=== PATIENT | male | born 1970 | race Two or more races ===

== ENCOUNTER 2018-02-26 16:52 | Emergency (ER) | payer MEDICAID ==
[~2018-02-26] VITALS: Ht 177.8 cm; Wt 68.0 kg
[~2018-02-26 16:52] MED LIST: CELEXA; SEROQUEL; TRAZODONE; WELBUTRIN
[2018-02-26 18:02] LABS: HEMATOCRIT. 43.3 % (42.0-52.0); HEMOGLOBIN. 15.2 g/dL (14.0-18.0); MEAN CORPUSCULAR HEMOGLOBIN 32.6 pg (28.0-32.0); MEAN CORPUSCULAR VOLUME 92.7 fL (80.0-94.0); MEAN PLATELET VOLUME 7.6 fl (7.4-10.4); PLATELET 249 x1000/uL (130-400); RED BLOOD CELL COUNT 4.67 mill/uL (4.7-6.1); RED CELL DISTRIBUTION WIDTH 13.5 % (11.6-14.6)
[2018-02-26 18:09] LABS: INR 1.1; PROTHROMBIN TIME 11.5 sec (9.4-11.6)
[2018-02-26 18:12] LABS: CHLORIDE 105 mEq/L (98-107)
[2018-02-26 19:14] LABS: PLATELET ESTIMATE NORMAL
[2018-02-26 19:21] LABS: CLARITY URINE CLOUDY (CLEAR); COLOR URINE DARK YELLOW (YELLOW); KETONES URINE NEGATIVE (NEGATIVE); LEUKOCYTE ESTERASE URINE NEGATIVE (NEGATIVE); NITRITE URINE NEGATIVE (NEGATIVE); OCCULT BLOOD URINE NEGATIVE (NEGATIVE); PROTEIN URINE 1+ (NEGATIVE); SPECIFIC GRAVITY URINE 1.027 (1.005-1.030)
[2018-02-26] MEDS ORDERED: LORAZEPAM 2MG/ML CPJ IV ONE (20:00)
[2018-02-26] MEDS ORDERED: IOHEXOL-300 100 ML BOTTLE ONE (22:13)
[2018-02-26 22:57] LABS: AMMONIA 18 uMol/L (<32)
[2018-02-27 06:47] VITALS: BP 103/64
[2018-02-27 11:09] LABS: *BARBITURATES SCREEN URINE NEGATIVE (NEGATIVE); *BENZODIAZEPINES SCREEN URINE NEGATIVE (NEGATIVE); *COCAINE SCREEN URINE NEGATIVE (NEGATIVE)
[2018-02-27 11:10] LABS: CANNABINOID URINE SCREEN NEGATIVE (NEGATIVE); METHADONE URINE SCREEN NEGATIVE (NEGATIVE); OPIATES URINE SCREEN NEGATIVE (NEGATIVE); PHENCYCLIDINE URINE SCREEN NEGATIVE (NEGATIVE)
[2018-02-27 11:17] LABS: *AMPHETAMINES SCREEN URINE PRESUMTIVE POSITIVE (NEGATIVE)
== END 2018-02-27 06:40 | disposition home or self-care (01) ==
LOC: ER 17:00
DX: G93.40 Encephalopathy, unspecified (principal); K62.89 Other specified diseases of anus and rectum; F15.10 Other stimulant abuse, uncomplicated; R15.9 Full incontinence of feces; R41.82 Altered mental status, unspecified; K76.0 Fatty (change of) liver, not elsewhere classified; N28.1 Cyst of kidney, acquired; Z88.0 Allergy status to penicillin
CPT/HCPCS: 36415; 70450; 74177; 80053; 80305; 81003; 82140; 83690; 85025; 85610; 96374; 99285; G0482; J2060; Q9967; Z7610

== ENCOUNTER 2018-04-30 02:54 | Emergency (ER) | payer MEDICAID ==
[~2018-04-30] VITALS: Ht 188 cm; Wt 64.0 kg
[2018-04-30] MEDS ORDERED: KETOROLAC 30MG/ML VIAL IM ONE (03:45)
[2018-04-30 04:02] LABS: BASOPHILS % 0.5 % (0.0-2.0); EOSINOPHILS % 0.6 % (0.0-5.0); HEMATOCRIT. 49.7 % (42.0-52.0); HEMOGLOBIN. 17.6 g/dL (14.0-18.0); LYMPHOCYTES % 23.2 % (20.0-50.0); MEAN CORPUSCULAR HEMOGLOBIN 33.4 pg (28.0-32.0); MEAN CORPUSCULAR VOLUME 94.4 fL (80.0-94.0); MEAN PLATELET VOLUME 7.5 fl (7.4-10.4); MONOCYTES % 12.5 % (2.0-8.0); NEUTROPHILS % 63.2 % (40.0-76.0); PLATELET 281 x1000/uL (130-400); RED BLOOD CELL COUNT 5.27 mill/uL (4.7-6.1)
[2018-04-30 04:08] LABS: CHLORIDE 100 mEq/L (98-107)
[2018-04-30 04:11] LABS: ETHANOL BLOOD < 10 mg/dL
[2018-04-30 04:17] LABS: CLARITY URINE CLEAR (CLEAR); COLOR URINE DARK YELLOW (YELLOW); KETONES URINE TRACE (NEGATIVE); LEUKOCYTE ESTERASE URINE 1+ (NEGATIVE); NITRITE URINE POSITIVE (NEGATIVE); OCCULT BLOOD URINE NEGATIVE (NEGATIVE); PROTEIN URINE 1+ (NEGATIVE); SPECIFIC GRAVITY URINE 1.024 (1.005-1.030)
[2018-04-30 04:40] LABS: *AMPHETAMINES SCREEN URINE PRESUMTIVE POSITIVE (NEGATIVE); *BARBITURATES SCREEN URINE NEGATIVE (NEGATIVE); *COCAINE SCREEN URINE PRESUMTIVE POSITIVE (NEGATIVE); METHADONE URINE SCREEN NEGATIVE (NEGATIVE)
[2018-04-30 04:41] LABS: CANNABINOID URINE SCREEN NEGATIVE (NEGATIVE); OPIATES URINE SCREEN NEGATIVE (NEGATIVE); PHENCYCLIDINE URINE SCREEN NEGATIVE (NEGATIVE)
[2018-04-30 04:43] LABS: *BENZODIAZEPINES SCREEN URINE NEGATIVE (NEGATIVE)
[2018-04-30] MEDS ORDERED: AZITHROMYCIN 500 MG TABLET PO ONE (06:30)
[2018-04-30] MEDS ORDERED: DOXYCYCLINE HYCLATE 100MG CAPSULE PO ONE (06:30)
[2018-04-30] MEDS ORDERED: LORAZEPAM 2MG/ML CPJ IM PRN (09:15)
[2018-05-01 08:18] VITALS: BP 134/78
[2018-05-02 08:20] LABS: CHLAMYDIA TRACHOMATIS NAA Negative (Negative); NEISSERIA GONORRHOEAE NAA Negative (Negative)
== END 2018-05-01 12:54 | disposition home or self-care (01) ==
LOC: ER 02:54
DX: F15.10 Other stimulant abuse, uncomplicated (principal); F20.9 Schizophrenia, unspecified; G89.29 Other chronic pain; M54.5 Low back pain; R45.851 Suicidal ideations; J45.909 Unspecified asthma, uncomplicated; F17.200 Nicotine dependence, unspecified, uncomplicated; Z88.0 Allergy status to penicillin
CPT/HCPCS: 36415; 80053; 80305; 81003; 85025; 87491; 87591; 96372; 99284; G0482; J1885; J2060; Z7610

== ENCOUNTER 2018-07-21 05:29 | Emergency (ER) | payer MEDICAID ==
[~2018-07-21] VITALS: Ht 172.7 cm; Wt 77.0 kg
[2018-07-21 05:33] VITALS: BP 138/92
== END 2018-07-21 06:40 | disposition home or self-care (01) ==
LOC: ER 05:40
DX: S82.491A Other fracture of shaft of right fibula, initial encounter for closed fracture (principal); R45.851 Suicidal ideations; J45.909 Unspecified asthma, uncomplicated; F20.9 Schizophrenia, unspecified; F15.10 Other stimulant abuse, uncomplicated; X58.XXXA Exposure to other specified factors, initial encounter; Y93.89 Activity, other specified; Y92.89 Other specified places as the place of occurrence of the external cause; Y99.8 Other external cause status; Z88.0 Allergy status to penicillin
CPT/HCPCS: 29515; 99283

== ENCOUNTER 2020-12-18 04:39 | Emergency (ER) | payer MEDICAID ==
[~2020-12-18] VITALS: Ht 175.3 cm; Wt 73.0 kg
[2020-12-18 05:33] LABS: BASOPHILS % 0.7 % (0.0-2.0); EOSINOPHILS % 4.3 % (0.0-5.0); HEMATOCRIT. 45.1 % (42.0-52.0); HEMOGLOBIN. 15.4 g/dL (14.0-18.0); LYMPHOCYTES % 26.8 % (20.0-50.0); MEAN CORPUSCULAR HEMOGLOBIN 31.9 pg (28.0-32.0); MEAN CORPUSCULAR VOLUME 93.6 fL (80.0-94.0); MEAN PLATELET VOLUME 7.2 fl (7.4-10.4); MONOCYTES % 10.6 % (2.0-8.0); NEUTROPHILS % 57.6 % (40.0-76.0); PLATELET 253 x1000/uL (130-400); RED BLOOD CELL COUNT 4.83 mill/uL (4.7-6.1)
[2020-12-18 05:39] LABS: CHLORIDE 108 mEq/L (98-107)
[2020-12-18 05:44] LABS: ETHANOL BLOOD < 10 mg/dL
[2020-12-18] MEDS ORDERED: VANCOMYCIN 1 G PREMIX 200 ML IV SCH (06:45)
[2020-12-18] MEDS ORDERED: CLINDAMYCIN 600 MG in DEXTROSE 5% WATER 50 ML IV ONE (07:00)
[2020-12-18] MEDS ORDERED: CLINDAMYCIN 600MG PREMIX 50 ML IV SCH (07:15)
[2020-12-18] MEDS ORDERED: SODIUM CHLORIDE 0.9% 1,000 ML IV ONE (07:15)
[2020-12-18 07:57] LABS: CLARITY URINE CLEAR (CLEAR); COLOR URINE YELLOW (YELLOW); KETONES URINE NEGATIVE (NEGATIVE); LEUKOCYTE ESTERASE URINE 2+ (NEGATIVE); NITRITE URINE NEGATIVE (NEGATIVE); OCCULT BLOOD URINE TRACE (NEGATIVE); PROTEIN URINE NEGATIVE (NEGATIVE); SPECIFIC GRAVITY URINE 1.027 (1.005-1.030)
[2020-12-18] MEDS ORDERED: MORPHINE SULFATE 4 MG/ML CPJ (NOT FOR IM USE) IV ONE (08:15)
[2020-12-18 09:00] LABS: *BENZODIAZEPINES SCREEN URINE NEGATIVE (NEGATIVE); *COCAINE SCREEN URINE NEGATIVE (NEGATIVE); METHADONE URINE SCREEN NEGATIVE (NEGATIVE)
[2020-12-18 09:01] LABS: *AMPHETAMINES SCREEN URINE PRESUMTIVE POSITIVE (NEGATIVE); *BARBITURATES SCREEN URINE NEGATIVE (NEGATIVE); CANNABINOID URINE SCREEN NEGATIVE (NEGATIVE); OPIATES URINE SCREEN NEGATIVE (NEGATIVE); PHENCYCLIDINE URINE SCREEN NEGATIVE (NEGATIVE)
[2020-12-18] MEDS ORDERED: IOHEXOL-300 100 ML BOTTLE ONE (09:42)
[2020-12-18] MEDS ORDERED: LEVOFLOXACIN 750MG PREMIX 150 ML IV NR (11:00)
[2020-12-18 12:50] VITALS: BP 122/84
[2020-12-21 05:08] LABS: NEISSERIA GONORRHOEAE NAA Negative (Negative)
== END 2020-12-18 13:13 | disposition home or self-care (01) ==
LOC: ER 04:39
DX: N49.2 Inflammatory disorders of scrotum (principal); N39.0 Urinary tract infection, site not specified; J45.909 Unspecified asthma, uncomplicated; F31.9 Bipolar disorder, unspecified; F20.9 Schizophrenia, unspecified; Z88.0 Allergy status to penicillin; Z86.19 Personal history of other infectious and parasitic diseases; I49.9 Cardiac arrhythmia, unspecified; Z20.822 Contact with and (suspected) exposure to COVID-19
CPT/HCPCS: 36415; 74177; 80053; 80305; 80307; 80320; 80329; 81003; 85025; 87086; 87426; 87491; 87591; 93005; 96365; 96366; 96367; 96375; 99285; J1956; J2270; J3370; J3490; J7030; Q9967; J7060; G0480